=== PATIENT | female | born 1970 | race Caucasian/White ===

== ENCOUNTER → 2016-06-28 | Outpatient (CLI) | payer BC ==
--- NOTE | 2016-06-29 10:10 | MM ---
Reason for exam: screening (asymptomatic). Last mammogram was performed 7 months ago. History: Patient had first child at age 33. Family history of breast cancer in grandmother at age 60. Benign core biopsy of the right breast, 1998. Taking hormonal contraceptives for 20 years beginning at age 18. Physical Findings: A clinical breast exam by your physician is recommended on an annual basis and results should be correlated with mammographic findings. MG Screening Mammo w CAD Bilateral CC and MLO view(s) were taken. Prior study comparison: November 14, 2015, right breast MG 3d diag mammo w/cad RT. December 03, 2013, bilateral MG screening mammo w CAD. The breast tissue is heterogeneously dense. This may lower the sensitivity of mammography. Asymmetric breast tissue in the right breast is stable. There is no discrete abnormality. ASSESSMENT: Negative, BI-RAD 1 RECOMMENDATION: Routine screening mammogram of both breasts in 1 year.
== END | disposition home or self-care (01) ==
LOC: RADMAMWWP 10:49
PROVIDERS: ATTEND Obstetrics & Gynecology
DX: Z12.31 Encounter for screening mammogram for malignant neoplasm of breast (principal)

== ENCOUNTER → 2017-08-11 | Outpatient (CLI) | payer BC ==
--- NOTE | 2017-08-15 08:00 | MM ---
Reason for exam: screening (asymptomatic). Last mammogram was performed 1 year and 1 month ago. History: Patient had first child at age 33. Family history of breast cancer in grandmother at age 60. Benign core biopsy of the right breast, 1998. Taking hormonal contraceptives for 20 years beginning at age 18. Physical Findings: A clinical breast exam by your physician is recommended on an annual basis and results should be correlated with mammographic findings. MG 3D Screening Mammo W/Cad Bilateral CC and MLO view(s) were taken. Prior study comparison: June 28, 2016, bilateral MG screening mammo w CAD. November 14, 2015, right breast MG 3d diag mammo w/cad RT. Finding: There is a new 4 mm equal density (isodense), circumscribed oval mass located 8 cm from the nipple in the 3 o'clock upper outer quadrant, posterior position of the left breast. New finding since June 28, 2016. ASSESSMENT: Incomplete: need additional imaging evaluation, BI-RAD 0 RECOMMENDATION: Ultrasound of the left breast. [facility] will attempt to contact patient to return for ultrasound.
== END | disposition home or self-care (01) ==
LOC: RADMAMWWP 09:54
PROVIDERS: ATTEND Obstetrics & Gynecology
DX: Z12.31 Encounter for screening mammogram for malignant neoplasm of breast (principal)
CPT/HCPCS: 77063; 77067

== ENCOUNTER → 2017-09-02 | Outpatient (CLI) | payer BC ==
--- NOTE | 2017-09-05 09:13 | USB ---
Reason for exam: additional evaluation requested from abnormal screening. History: Patient had first child at age 33. Family history of breast cancer in grandmother at age 60. Benign core biopsy of the right breast, 1998. Taking hormonal contraceptives for 20 years beginning at age 18. Physical Findings: Nurse Summary: bilateral nipple inversion always per patient, all soft, nodular, movable (nurse ts). US Breast Workup LT Left complete breast ultrasound includes all four quadrants, the retroareolar region and axilla. Finding demonstrates a 0.4 x 0.2 x 0.3cm cystic lesion at 9 o'clock. These results were verbally communicated with the patient and result sheet given to the patient on 09/02/17. ASSESSMENT: Probably benign, BI-RAD 3 RECOMMENDATION: Follow-up diagnostic mammogram of the left breast in 6 months.
== END | disposition home or self-care (01) ==
LOC: RADUSWWP 09:42
PROVIDERS: ATTEND Obstetrics & Gynecology
DX: R92.8 Other abnormal and inconclusive findings on diagnostic imaging of breast (principal)

== ENCOUNTER → 2018-03-27 | Outpatient (CLI) | payer BC ==
--- NOTE | 2018-03-28 09:41 | MM ---
Reason for exam: follow-up at short interval from prior study. Last mammogram was performed 7 months ago. History: Patient had first child at age 33. Family history of breast cancer in grandmother at age 60. Benign core biopsy of the right breast, 1998. Taking hormonal contraceptives for 20 years beginning at age 18. Physical Findings: Nurse did not find any significant physical abnormalities on exam. MG 3D Diag Mammo W/Cad LT CC, MLO, and ML view(s) were taken of the left breast. Prior study comparison: August 11, 2017, bilateral MG 3d screening mammo w/cad. June 28, 2016, bilateral MG screening mammo w CAD. There are scattered fibroglandular densities. Nodule persists 8.7cm from nipple. Ultrasound recommended. These results were verbally communicated with the patient and result sheet given to the patient on 03/27/18. ASSESSMENT: Incomplete: need additional imaging evaluation, BI-RAD 0 RECOMMENDATION: Ultrasound of the left breast.
--- NOTE | 2018-03-28 09:43 | USB ---
Reason for exam: additional evaluation requested from abnormal screening. History: Patient had first child at age 33. Family history of breast cancer in grandmother at age 60. Benign core biopsy of the right breast, 1998. Taking hormonal contraceptives for 20 years beginning at age 18. US Breast Limited LT Left limited breast ultrasound including focal area of concern, retroareolar and axilla demonstrates a 1.1 x 0.7 x 0.5cm oval node at the axilla tail and a 1.6 x 0.8 x 0.7cm oval node at 2 o'clock. These results were verbally communicated with the patient and result sheet given to the patient on 03/27/18. ASSESSMENT: Probably benign, BI-RAD 3 RECOMMENDATION: Follow-up diagnostic mammogram of both breasts in 6 months. Ultrasound of the left breast in 6 months.
== END ==
LOC: RADMAMWWP 09:27
PROVIDERS: ATTEND Obstetrics & Gynecology
DX: R92.8 Other abnormal and inconclusive findings on diagnostic imaging of breast (principal)
CPT/HCPCS: 77061; 77065

== ENCOUNTER → 2020-12-26 | Outpatient (CLI) | payer BC ==
--- NOTE | 2020-12-26 14:56 | MM ---
Reason for exam: additional evaluation requested from prior study. Last mammogram was performed 2 years and 9 months ago. History: Patient had first child at age 33. Family history of breast cancer in grandmother at age 60. Benign core biopsy of the right breast, 1998. Taking hormonal contraceptives for 20 years beginning at age 18. Physical Findings: Nurse did not find any significant physical abnormalities on exam. MG 3D Diag Mammo W/Cad RAMYA Bilateral CC and MLO view(s) were taken. Prior study comparison: March 27, 2018, left breast MG 3d diag mammo w/cad LT. August 11, 2017, bilateral MG 3d screening mammo w/cad. June 28, 2016, bilateral MG screening mammo w CAD. The breast tissue is heterogeneously dense. This may lower the sensitivity of mammography. No significant new findings when compared with previous films. These results were verbally communicated with the patient and result sheet given to the patient on 12/26/20. ASSESSMENT: Benign, BI-RAD 2 RECOMMENDATION: Routine screening mammogram of both breasts in 1 year.
--- NOTE | 2020-12-26 14:57 | USB ---
Reason for exam: additional evaluation requested from prior study. History: Patient had first child at age 33. Family history of breast cancer in grandmother at age 60. Benign core biopsy of the right breast, 1998. Taking hormonal contraceptives for 20 years beginning at age 18. US Breast LT Left complete breast ultrasound includes all four quadrants, the retroareolar region and axilla. Finding demonstrates no cystic or solid lesion seen. These results were verbally communicated with the patient and result sheet given to the patient on 12/26/20. ASSESSMENT: Negative, BI-RAD 1 RECOMMENDATION: Routine screening mammogram of both breasts in 1 year.
== END | disposition home or self-care (01) ==
LOC: RADMAMWWP 13:48
PROVIDERS: ATTEND Obstetrics & Gynecology
DX: R92.2 Inconclusive mammogram (principal); Z80.3 Family history of malignant neoplasm of breast
CPT/HCPCS: 77062; 77066

== ENCOUNTER → 2024-01-24 | Outpatient (CLI) | payer BC ==
--- NOTE | 2024-01-27 12:41 | MM ---
Reason for Exam: Screening (asymptomatic). Last mammogram was performed 3 year(s) and 1 month(s) ago. Patient History: Menarche at age 13. First Full-Term at age 33. Late child-bearing (after 30). Perimenopausal. Hormonal Contraceptives, starting at age 18 for 20 years. 1999, Benign Core Biopsy on the right side. Paternal grandmother had breast cancer, age 60. Risk Values: Marilou 5 year model risk: 1.7%. NCI Lifetime model risk: 13.7%. Prior Study Comparison: 08/11/2017 Bilateral Screening Mammogram, [facility]. 03/27/2018 Left Diagnostic Mammogram, [facility]. 12/26/2020 Bilateral Diagnostic Mammogram, [facility]. Tissue Density: The breasts are heterogeneously dense, which may obscure small masses. Findings: Analyzed By CAD. Asymmetric density lateral right CC view has become more pronounced and incompletely disperses on 3-D images. Further evaluation recommended. Chronic nodularity central left breast. Otherwise, no significant change. Overall Assessment: Incomplete: need additional imaging evaluation, BI-RAD 0 Management: Special View Mammogram of the right breast. To include spot 3-D CC, 3-D CC rolled, and 3-D ML views. [facility] will attempt to contact patient to return for supplemental views and ultrasound if indicated. [facility], , 01/27/2024 12:35 PM. Electronically signed and approved by: Jose Manuel Fletcher M.D. Radiologist
== END | disposition home or self-care (01) ==
LOC: RADMAMWWP 11:46
PROVIDERS: ATTEND Family Medicine
DX: Z12.31 Encounter for screening mammogram for malignant neoplasm of breast (principal); Z80.3 Family history of malignant neoplasm of breast; R92.333 Mammographic heterogeneous density, bilateral breasts
CPT/HCPCS: 77063; 77067

== ENCOUNTER → 2024-02-08 | Outpatient (CLI) | payer BC ==
--- NOTE | 2024-02-08 10:55 | MM ---
Reason for Exam: Clinical finding. Last screening mammogram was performed less than 1 month ago. Patient History: Menarche at age 13. First Full-Term at age 33. Late child-bearing (after 30). Perimenopausal. Hormonal Contraceptives, starting at age 18 for 20 years. 1998, Benign Core Biopsy on the right side. Paternal grandmother had breast cancer, age 60. Risk Values: Marilou 5 year model risk: 1.7%. NCI Lifetime model risk: 13.7%. Tissue Density: Right: There are scattered areas of fibroglandular density. Findings: Analyzed By CAD. Pattern appears stable. Under compression no persistent suspicious persistent abnormality. No abnormality on rolled views. Precautionary six-month follow-up is recommended. No suspicious groups of microcalcifications, spiculated or lobular masses, architectural distortion or other secondary signs of malignancy are mammographically apparent. Overall Assessment: Probably benign, BI-RAD 3 Management: Diagnostic Mammogram of the right breast in 6 months. A negative mammogram report should not preclude additional follow up of suspicious palpable abnormalities. Patient should continue monthly self breast exam. A clinical breast exam by your physician is recommended on an annual basis and results should be correlated with mammographic findings. Note on Marilou scores and lifetime risk: 1. A Marilou score greater than 3% is considered moderate risk. If this is the case, consider specialist referral to assess eligibility for a risk reducing agent. 2. If overall lifetime risk for the development of breast cancer is 20% or higher, the patient may qualify for future screening with alternating mammogram and breast MRI. [facility], , 02/08/2024 10:52 AM. Electronically signed and approved by: Valentin Blankenship D.O. Radiologis
== END | disposition home or self-care (01) ==
LOC: RADMAMWWP 10:14
PROVIDERS: ATTEND Family Medicine
DX: R92.8 Other abnormal and inconclusive findings on diagnostic imaging of breast (principal); R92.323 Mammographic fibroglandular density, bilateral breasts; Z80.3 Family history of malignant neoplasm of breast
CPT/HCPCS: 77061; 77065